=== PATIENT | female | born 1960 | race Caucasian/White ===

== ENCOUNTER → 2016-07-16 | Outpatient (CLI) | payer BC ==
[~2016-07-16] MED LIST: ATORVASTATIN; BCP TD; LEVOTHYROXINE PO
== END ==
LOC: MC.RAD 08:04
DX: Z12.31 Encounter for screening mammogram for malignant neoplasm of breast (principal)

== ENCOUNTER → 2017-07-18 | Outpatient (CLI) | payer BC | LOC: MC.RAD 06:57 | DX: Z12.31 Encounter for screening mammogram for malignant neoplasm of breast (principal) ==

== ENCOUNTER → 2018-09-01 | Outpatient (CLI) | payer BC | LOC: MC.RAD 07-28 14:00 | DX: Z12.31 Encounter for screening mammogram for malignant neoplasm of breast (principal) ==